=== PATIENT | female | born 1955 | race Caucasian/White ===

== ENCOUNTER → 2021-03-22 | Outpatient (CLI) | payer BC ==
--- NOTE | 2021-03-26 11:45 | MM ---
Reason for exam: screening (asymptomatic). Last mammogram was performed 1 year and 5 months ago. History: Family history of breast cancer in daughter at age 31. Physical Findings: A clinical breast exam by your physician is recommended on an annual basis and results should be correlated with mammographic findings. MG 3D Screening Mammo W/Cad Bilateral CC and MLO view(s) were taken. Prior study comparison: October 20, 2019, mammogram. The breast tissue is almost entirely fat. Finding: There is suspicious, equal, spiculted architectural distortion in the 9 o'clock outer quadrant, middle position of the right breast. New finding since October 20, 2019. ASSESSMENT: Incomplete: need additional imaging evaluation, BI-RAD 0 RECOMMENDATION: Special view mammogram of the right breast. If lesion persists on supplemental views, image directed ultrasound is recommended. [facility] will attempt to contact patient to return for supplemental views and ultrasound if indicated.
== END | disposition home or self-care (01) ==
LOC: RADMAMWWP 07:50
PROVIDERS: ATTEND Family Medicine
DX: Z12.31 Encounter for screening mammogram for malignant neoplasm of breast (principal); Z80.3 Family history of malignant neoplasm of breast
CPT/HCPCS: 77063; 77067

== ENCOUNTER → 2021-04-03 | Outpatient (CLI) | payer BC ==
--- NOTE | 2021-04-03 11:34 | MM ---
Reason for exam: additional evaluation requested from abnormal screening. Last mammogram was performed less than 1 month ago. History: Family history of breast cancer in daughter at age 31. Physical Findings: Nurse did not find any significant physical abnormalities on exam. MG 3D Work Up W/Cad RT Spot compression CC, spot compression MLO, and ML view(s) were taken of the right breast. Prior study comparison: March 22, 2021, bilateral MG 3d screening mammo w/cad. October 20, 2019, mammogram. Finding: There is a 3-4 mm circumscribed round mass in the upper outer quadrant, posterior middle position of the right breast, persists on additional views. These results were verbally communicated with the patient and result sheet given to the patient on 04/03/21. ASSESSMENT: Incomplete: need additional imaging evaluation, BI-RAD 0 RECOMMENDATION: Ultrasound of the right breast.
--- NOTE | 2021-04-03 11:35 | USB ---
Reason for exam: additional evaluation requested from abnormal screening. History: Family history of breast cancer in daughter at age 31. US Breast Workup Limited RT Right limited breast ultrasound including focal area of concern, retroareolar and axilla demonstrates a 0.4 x 0.3 x 0.4cm lesion too small to characterize at 10 o'clock and a 0.3 x 0.4 x 0.4cm lesion too small to characterize at 12 o'clock. Stable outside ultrasound 10/20/19. These results were verbally communicated with the patient and result sheet given to the patient on 04/03/21. ASSESSMENT: Benign, BI-RAD 2 RECOMMENDATION: Return to routine screening mammogram schedule for both breasts.
== END | disposition home or self-care (01) ==
LOC: RADMAMWWP 10:20
PROVIDERS: ATTEND Family Medicine
DX: N63.11 Unspecified lump in the right breast, upper outer quadrant (principal); Z80.3 Family history of malignant neoplasm of breast
CPT/HCPCS: 77061; 77065

== ENCOUNTER → 2022-05-08 | Outpatient (CLI) | payer MEDICARE, BC ==
--- NOTE | 2022-05-09 09:07 | MM ---
Reason for Exam: Screening (asymptomatic). Last mammogram was performed 1 year(s) and 1 month(s) ago. Patient History: Menarche at age 14. First Full-Term at age 30. Daughter had breast cancer, age 31. Risk Values: Janelle 5 year model risk: 3.3%. NCI Lifetime model risk: 12.0%. Prior Study Comparison: 10/20/2019 Screening Mammogram, Unknown. 03/22/2021 Bilateral Screening Mammogram, [facility]. 04/03/2021 Right Diagnostic Mammogram, [facility]. Tissue Density: There are scattered fibroglandular densities. Findings: Analyzed By CAD. There is asymmetry in the right breast lateral aspect seen on CC view only. Measuring 11 mm approximately 7 cm from the nipple. There is asymmetry in the right breast , lateral aspect, middle depth seen on CC view only. Measuring 11 mm approximately 7 cm from the nipple. Overall Assessment: Incomplete: need additional imaging evaluation, BI-RAD 0 Management: Diagnostic Mammogram of the right breast. Diagnostic Breast Ultrasound of the right breast. A clinical breast exam by your physician is recommended on an annual basis and results should be correlated with mammographic findings. [facility] will attempt to contact patient to return for supplemental views and ultrasound if indicated. Electronically signed and approved by: Paul Cobb DO
== END | disposition home or self-care (01) ==
LOC: RADMAMWWP 15:59
PROVIDERS: ATTEND Family Medicine
DX: Z12.31 Encounter for screening mammogram for malignant neoplasm of breast (principal); Z80.3 Family history of malignant neoplasm of breast
CPT/HCPCS: 77063; 77067

== ENCOUNTER → 2022-05-23 | Outpatient (CLI) | payer MEDICARE, BC ==
--- NOTE | 2022-05-23 14:05 | MM ---
Reason for Exam: Additional evaluation requested from abnormal screening. Last screening mammogram was performed less than 1 month ago. Patient History: Menarche at age 14. First Full-Term at age 30. Daughter had breast cancer, age 31. Risk Values: Janelle 5 year model risk: 3.3%. NCI Lifetime model risk: 12.0%. Prior Study Comparison: 10/20/2019 Screening Mammogram, Unknown. 03/22/2021 Bilateral Screening Mammogram, [facility]. 04/03/2021 Right Diagnostic Mammogram, [facility]. 05/08/2022 Bilateral MG 3D screening mammo w/cad, [facility]. Tissue Density: Right: There are scattered fibroglandular densities. Findings: Analyzed By CAD. Increase in size of 8 mm circumscribed mass with high density in the upper outer right breast 7 cm from the nipple. No suspicious calcifications. Increase in size of 8 mm circumscribed mass with high density in the upper outer right breast 7 cm from the nipple. Benign-appearing calcifications. No suspicious calcifications. Overall Assessment: Incomplete: need additional imaging evaluation, BI-RAD 0 Management: Diagnostic Breast Ultrasound of the left breast. A clinical breast exam by your physician is recommended on an annual basis and results should be correlated with mammographic findings. This exam should not preclude additional follow-up of suspicious palpable abnormalities. Results were given to the patient verbally at the time of exam. Electronically signed and approved by: Darío Staley D.O.
--- NOTE | 2022-05-23 14:25 | USB ---
Reason for Exam: Additional evaluation requested from abnormal screening. Patient History: Menarche at age 14. First Full-Term at age 30. Daughter had breast cancer, age 31. Risk Values: Janelle 5 year model risk: 3.3%. NCI Lifetime model risk: 12.0%. Prior Study Comparison: 03/22/2021 Bilateral Screening Mammogram, [facility]. 04/03/2021 Right Diagnostic Mammogram, [facility]. 05/08/2022 Bilateral MG 3D screening mammo w/cad, [facility]. Findings: The area of palpable concern of the right breast, the axilla of the right breast and the retroareolar of the right breast were scanned. A targeted exam of the right breast at 9-10 o'clock with additional evaluation of the retroareolar region and axillary regions where obtained. There is a well-circumscribed simple cyst with anechoic appearance and posterior acoustic enhancement in the right breast at 10:00 7 cm from the nipple measuring 0.9 x 0.6 x 0.7 cm. This corresponds to an increase in size of prior cyst. Overall Assessment: Benign, BI-RAD 2 Management: Screening Mammogram of both breasts in 1 year. A clinical breast exam by your physician is recommended on an annual basis and results should be correlated with mammographic findings. Electronically signed and approved by: Darío Staley D.O.
== END | disposition home or self-care (01) ==
LOC: RADMAMWWP 13:33
PROVIDERS: ATTEND Family Medicine
DX: R92.8 Other abnormal and inconclusive findings on diagnostic imaging of breast (principal); Z80.3 Family history of malignant neoplasm of breast
CPT/HCPCS: 77065; 76642; G0279; 77061

== ENCOUNTER → 2023-08-06 | Outpatient (CLI) | payer MEDICARE, BC ==
--- NOTE | 2023-08-06 10:09 | MM ---
Reason for Exam: Additional evaluation requested from prior study. Last mammogram was performed 1 year(s) and 3 month(s) ago. Patient History: Menarche at age 14. First Full-Term at age 30. Postmenopausal. Patient has history of breast feeding. Daughter had breast cancer, age 31. Risk Values: Janelle 5 year model risk: 3.3%. NCI Lifetime model risk: 11.5%. Prior Study Comparison: 10/20/2019 Screening Mammogram, [facility]. 03/22/2021 Bilateral Screening Mammogram, [facility]. 04/03/2021 Right Diagnostic Mammogram, [facility]. 04/03/2021 Right Diagnostic Ultrasound, [facility]. 05/08/2022 Bilateral MG 3D screening mammo w/cad, [facility]. 05/23/2022 Right MG 3D work up w/cad RT, [facility]. 05/23/2022 Right US breast workup limited RT, [facility]. Tissue Density: There are scattered fibroglandular densities. Findings: Analyzed By CAD. No evidence for mass or distortion. Benign calcifications are stable. Overall Assessment: Benign, BI-RAD 2 Management: Screening Mammogram of both breasts in 1 year. . Results were given to the patient verbally at the time of exam. Patient should continue monthly self-breast exams. A clinical breast exam by your physician is recommended on an annual basis. This exam should not preclude additional follow-up of suspicious palpable abnormalities. Note on Janelle scores and lifetime risk: 1. A Janelle score greater than 3% is considered moderate risk. If this is the case, consider specialist referral to assess eligibility for a risk reducing agent. 2. If overall lifetime risk for the development of breast cancer is 20% or higher, the patient may qualify for future screening with alternating mammogram and breast MRI. Electronically signed and approved by: Dominic Mayorga M.D. Radiologis
== END | disposition home or self-care (01) ==
LOC: RADMAMWWP 09:41
PROVIDERS: ATTEND Family Medicine
DX: R92.323 Mammographic fibroglandular density, bilateral breasts (principal); Z80.3 Family history of malignant neoplasm of breast; Z78.0 Asymptomatic menopausal state
CPT/HCPCS: 77066; G0279; 77062

== ENCOUNTER → 2023-08-07 | Outpatient (CLI) | payer MEDICARE, BC ==
--- NOTE | 2023-08-07 21:51 | BD ---
EXAMINATION TYPE: Axial Bone Density DATE OF EXAM: 08/07/2023 CLINICAL HISTORY: 67 years old Female. ICD-10 CODE: Z87.0 ASYMPTOMATIC MENOPAUSAL STATE Height: 66in Weight: 228lb FRAX RISK QUESTIONS: Secondary Osteoporosis: RISK FACTORS HISTORY OF: Family History of Osteoporosis: yes Active: yes Postmenopausal woman: yes MEDICATIONS: Additional Medications: calcium with vitamin d Additional History: EXAM MEASUREMENTS: Bone mineral densitometry was performed using the [employer] System. Bone mineral density as measured about the Lumbar spine is: ----- L1-L4(G/cm2): 1.199 T Score Values are as follows: ----- L1: -0.8 ----- L2: 0.0 ----- L3: 0.2 ----- L4: 0.8 ----- L1-L4: 0.2 Z Score Values are as follows: ----- L1: -0.4 ----- L2: 0.5 ----- L3: 0.7 ----- L4: 1.2 ----- L1-L4: 0.6 First dexa at [facility] Bone mineral density about the R hip (g/cm2): 1.035 Bone mineral density about the L hip (g/cm2): 1.028 T Score values are as follows: -----R Neck: -1.1 -----L Neck: -0.9 -----R Total: 0.2 -----L Total: 0.2 Z Score values are as follows: -----R Neck: -0.4 -----L Neck: -0.1 -----R Total: 0.7 -----L Total: 0.6 First dexa at [facility] FRAX%s: The graph provided illustrates a 7.8% chance for a major osteoporotic fx and a 0.7% chance fo r the hips probability for fx in 10 years time. IMPRESSION: Osteopenia (T Score between -2.5 and -1). There is slightly increased risk of fracture and the patient may be considered for treatment. Re-Screen 2-5 years. NOTE: T-SCORE=SD OF THE YOUNG ADULT MEAN.
== END | disposition home or self-care (01) ==
LOC: RADBDWWP 13:04
PROVIDERS: ATTEND Family Medicine
DX: M85.851 Other specified disorders of bone density and structure, right thigh (principal); Z78.0 Asymptomatic menopausal state
CPT/HCPCS: 77080